=== PATIENT | female | born 1965 | race Caucasian/White ===

== ENCOUNTER 2016-12-13 06:14 | Emergency (ER) | payer OTHER ==
--- NOTE | 2016-12-13 09:01 | ED CLINICAL REPORT ---
Clinical Report - Physicians/Mid Levels [facility] [address] [place] [address] 12/13/2016 6:17 Patient: GRETCHEN DUNAWAY Time Seen: 621. Arrived- By private vehicle. Historian- patient. HISTORY OF PRESENT ILLNESS Is still present. Chief Complaint: HEADACHE. This started today. It was abrupt in onset and has been constant but is not gone now. It is described as similar to previous headaches. Located in the right hemicranial region. No neck pain. Not located in the facial region. At its maximum, severity described as moderate. When seen in the E.D., severity described as moderate. Modifying factors: worsened by bright light and noise; (relieved by medications). The patient has had photophobia and nausea. No preceding symptoms, blurred vision or vomiting. The patient has had recent travel- ([place]). Similar symptoms previously: Many times. Recent medical care: Not recently seen/assessed. REVIEW OF SYSTEMS No fever or skin rash. All systems otherwise negative, except as recorded above. PAST HISTORY See nurses notes. Allergies: Imitrex. Penicillins. Percocet. Reglan. SOCIAL HISTORY Never smoker. Occasional alcohol use. No drug use. No recent travel. Is an out of state resident. ADDITIONAL NOTES The nursing notes have been reviewed. PHYSICAL EXAM Vital Signs: 12/13/2016 06:20 BP: 130/89. HR: 86. RR: 18. O2 saturation: 100%. Temp: 97.7 F. Pain level now: 10/10. Blood pressure normal. Oxygen saturation normal. Appearance: Alert. No acute distress. Eyes: Pupils equal, round and reactive to light. Eyes normal inspection. No conjunctival findings. (no papilledema. Normal appearing retinal vasculature. Pupils are equally round and reactive to light. Extraocular movements are intact Without pain). ENT: Ears normal. Nose normal. Pharynx normal. Neck: Normal inspection. Neck supple. CVS: Normal heart rate and rhythm. Heart sounds normal. Pulses normal. Respiratory: No respiratory distress. Breath sounds normal. No rales, wheezes or rhonchi. Abdomen: Soft and nontender. No organomegaly. Back: Normal inspection. Skin: Skin warm and dry. Normal skin color. No rash. Normal skin turgor. Extremities: Extremities exhibit normal ROM. No lower extremity edema. Neuro: Oriented X 3. Alert. Mood/affect normal. Speech normal. Cranial nerves normal (as tested). No cerebellar findings. No motor deficit. No sensory deficit. (ormal gait). PROGRESS AND PROCEDURES Course of Care: Patient is a pleasant 51 yo female presenting for evaluation of headache. Patient as been evaluated for SAH, increased ICP, meningitis, and space occupying lesion. Patients exam and history are not consistent with these entities. Patient is agreeable to treatment for headache. Medications have been ordered after reviewing allergies and intolerances. Patient will be reevaluated after the medications have been given. Patient was reevaluated and found to be significantly improved. Patient reports being able to return home and follow up with doctor. Repeat examination continues to be benign. I discussed with the patient workup, diagnosis, home care, follow-up, and return precautions. All questions have been answered. The patient expressed understanding of these instructions and was agreeable to them. Do not feel patient needs to be admitted to the hospital or require further ED workup/evaluation. CLINICAL IMPRESSION 12/13/2016 08:23 BP: 122/76. HR: 77. RR: 18. O2 saturation: 100%. Pain level now: 2/10. Acute headache (right sided). Blood pressure normal. Oxygen saturation normal. INSTRUCTIONS Warnings: GENERAL WARNINGS: Return or contact your physician immediately if your condition worsens or changes unexpectedly, if not improving as expected, or if other problems arise. SPECIFICALLY, return if you develop fever, vomiting, numbness, weakness, difficulty thinking, visual disturbances, fainting or extreme fatigue. Follow-up: Return to the emergency department as needed. Follow up with your doctor in three days. Reason for referral: recheck today's concerns. Summary of care provided to patient via paper. Screening today revealed the patient's blood pressure to be in the normal range. The patient should follow up with a primary care provider for blood pressure management. Understanding of the discharge instructions verbalized by patient. (Electronically signed by Damian Head Dr. 12/18/2016 3:36)
--- NOTE | 2016-12-13 09:01 | ED ORDER SUMMARY ---
..... Patient: GRETCHEN DUNAWAY OrderSheet [facility] VisitID: [id number] [place] [address] 51y, F Registration Date/Time: 12/13/2016 ORDER SHEET Weight: 66.6 kg (stated) Allergies: Penicillins, Percocet, Imitrex, Reglan GENERAL ORDERS: MEDICATION ORDERS: Phenergan IV 25 mg (HIGH ALERT MEDICATION, NOW) (06:34 12/13/2016 J Carlos Wills) (6:54 DDaviannie R.N.) IV FLUIDS: IV NS : initial bolus 1000 mL (1000 mL/hr), then none - for X1 (NOW) (06:34 12/13/2016 J Carlos Wills) (6:54 DDavis R.N.) Benadryl IV 25 mg (NOW) (06:35 12/13/2016 J Carlos Wills) (6:57 TBowen R.N.) Decadron IV 10 mg (NOW) (06:37 12/13/2016 J Carlos Wills) (6:59 TBowen R.N.) Toradol IV 30 mg (NOW) (06:37 12/13/2016 J Carlos Wills) (6:59 TBowen R.N.) Dilaudid IV 1 mg (HIGH ALERT MEDICATION, NOW) (07:33 12/13/2016 J Carlos Wills) (7:46 Landon R.N.) ORDER SHEET NOTES: [Electronically signed by Rosey Aguero R.N. (09:12 12/13/2016)] [Electronically signed by Damian Head Dr. (03:36 12/18/2016)] [Electronically locked/signed by Rosey Aguero R.N. (09:12 12/13/2016)]
--- NOTE | 2016-12-13 09:01 | ED ORDER SUMMARY ---
..... Patient: GRETCHEN DUNAWAY OrderSheet [facility] VisitID: [id number] [place] [address] 51y, F Registration Date/Time: 12/13/2016 ORDER SHEET Weight: 66.6 kg (stated) Allergies: Penicillins, Percocet, Imitrex, Reglan GENERAL ORDERS: MEDICATION ORDERS: Phenergan IV 25 mg (HIGH ALERT MEDICATION, NOW) (06:34 12/13/2016 J Carlos Wills) (6:54 DDaviannie R.N.) IV FLUIDS: IV NS : initial bolus 1000 mL (1000 mL/hr), then none - for X1 (NOW) (06:34 12/13/2016 J Carlos Wills) (6:54 DDavis R.N.) Benadryl IV 25 mg (NOW) (06:35 12/13/2016 J Carlos Wills) (6:57 TBowen R.N.) Decadron IV 10 mg (NOW) (06:37 12/13/2016 J Carlos Wills) (6:59 TBowen R.N.) Toradol IV 30 mg (NOW) (06:37 12/13/2016 J Carlos Wills) (6:59 TBowen R.N.) Dilaudid IV 1 mg (HIGH ALERT MEDICATION, NOW) (07:33 12/13/2016 J Carlos Wills) (7:46 Landon R.N.) ORDER SHEET NOTES: [Electronically signed by Rosey Aguero R.N. (09:12 12/13/2016)] [Electronically signed by Damian Head Dr. (03:36 12/18/2016)] [Electronically locked/signed by Rosey Aguero R.N. (09:12 12/13/2016)]
--- NOTE | 2016-12-13 09:01 | ED NURSING NOTES ---
Clinical Report - Nurses [facility] [address] [place] [address] 12/13/2016 6:17 [id number] Triage time 06:Dec 13 2016. Acuity: LEVEL 4. Chief Complaint: MIGRAINE HEADACHE. 06:20 12/13/16. SEPSIS SCREEN: Sepsis Screen. Negative (no infection suspected/documented). GAETANO COMA SCORE: Gaetano Coma Scale: 15- eyes open spontaneously (4); best verbal response- oriented x 4 (5); best motor response- obeys commands (6). --06:24 Neela Rhodes R.N. 06:20 12/13/16. BP: 130/89. HR: 86. RR: 18. O2 saturation: 100%. Temp: 97.7 F. Pain level now: 06/17. --06:24 Neela Rhodes R.N. Weight: 66.6 kg stated. Height/Length: 67 inches Per Patient. BMI: 23. --06:20 Neela Rhodes R.N. Medication/allergy information source: the patient. --06:24 Neela Rhodes R.N. Allergies Penicillins. --06:20 Neela Rhodes R.N. Percocet. --06:20 Neela Rhodes R.N. Imitrex. --06:20 Neela Rhodes R.N. Reglan. --06:20 Neela Rhodes R.N. History Arrived by private vehicle. Historian: patient. Accompanied by family. This started 2 days ago. ( Migraine since Friday. States phenergan, benadryl toradol helps and that is what she had in ER Wed night (in [place]) . States this is a little worse headache than normal). She has had nausea. No vomiting. SOCIAL HX: Never smoker. Occasional alcohol use. No drug use. Recent travel. No known contact with a sick individual. ABUSE ASSESSMENT: No report of abuse. SELF HARM ASSESSMENT: A self harm assessment was performed. The patient answered "no" to the question "Have you recently felt down, depressed, or hopeless?", "Have you noticed less interest or pleasure in doing things?", "Do you have thoughts of harming or killing yourself?", "Are you here because you tried to hurt yourself?", "Have you ever tried to hurt yourself before today?", "Have you recently had thoughts about harming or killing others?" and "Do you have any dangerous items in your possession?". --06:24 Neela Rhodes R.N. PROBLEMS: Migraine Headache. --06:21 Neela Rhodes R.N. ADDITIONAL SURGERIES: Cholecystectomy. Knee Surgery. --06:21 Neela Rhodes R.N. Interventions ID band on patient. --06:24 Neela Rhodes R.N. PHYSICAL ASSESSMENT 06:25 12/13/16. Ambulatory to room. GENERAL / NEURO / PSYCH: Alert. Oriented X 4. Speech within normal limits. HEENT: No facial asymmetry noted. Pupils equal, round and reactive to light. RESPIRATORY: Respirations not labored. Breath sounds within normal limits. CVS: Capillary refill less than 2 seconds. GI / : Abdomen soft. SKIN: Skin is warm and dry. --07:03 Neela Rhodes R.N. NURSING PROGRESS NOTES 06:25 12/13/16. The initial plan of care for this patient includes an assessment with efforts to address the presence of pain; impairment of the neurological system. This plan of care was discussed with the patient. Reassurance given. Patient identifiers checked. Side rails up x 1. Bed placed in lowest position. Brakes of bed on. Patient ready for evaluation. --07:04 Neela Rhodes R.N. 06:47 12/13/2016 Benadryl (DiphenhydrAMINE HCl) IVP 25 mg given over 2 minute(s) via site #1. Allergies verified, confirmed 5 rights and sedative warning given to the patient. IV patency established. IV site checked: no pain, redness, or swelling. IV flushed thoroughly pre- and post-medication administration. IVP given by RN. --06:57 Ja Moore 06:48 12/13/2016 Started 10 mg of Decadron IVPB; at 10 mL/hr over 2 minute(s) via site #1 via dial-a-flow. Allergies verified and confirmed 5 rights. IV patency established. IV site checked: no pain, redness, or swelling. IV flushed thoroughly pre- and post-medication administration. --06:59 Ja Moore 06:49 12/13/2016 Toradol IVP 30 mg given over 2 minute(s) via site #1. Allergies verified and confirmed 5 rights. IV patency established. IV site checked: no pain, redness, or swelling. IV flushed thoroughly pre- and post-medication administration. IVP given by RN. --06:59 Ja Moore 06:53 12/13/2016 Site #1 started via IV in the left antecubital space with an 20g angiocath, with aseptic technique and good blood return. Blood drawn: rainbow set. Labeled in the presence of the patient and sent to the lab. Saline lock flushed with saline (Started by VLADIMIR POWELL). --06:53 Saleem Lugo R.N. 06:53 12/13/2016 Started bag #1 1000 mL IV Fluids IV NS (Saline); at 1000 mL/hr over 1 hour(s) via site #1. Allergies verified and confirmed 5 rights. IV patency established. IV site checked: no pain, redness, or swelling. IV flushed thoroughly pre- and post-medication administration. Completed per protocol. --06:54 Saleem Lugo R.N. 06:53 12/13/2016 Started 25 mg of PHENERGAN (Promethazine HCl) IVPB in bag #1 50 mL; at 200 mL/hr over 15 minute(s) via site #1; Allergies verified and confirmed 5 rights. IV patency established. IV site checked: no pain, redness, or swelling. IV flushed thoroughly pre- and post-medication administration. Completed per protocol. --06:54 Saleem Lugo R.N. ( 0658 - Patient's program director air talent called out for a nurse, stating there was a problem with the IV. I entered room and discovered the patient's IV was infiltrated. Left AC area swollen and painful. IV fluids and IV discontinued, Dr. Damian Glynn present with patient in room and aware. I informed the patient's primary ER nurse Neela Leivn RN. I applied a warm towel compress to the affected area over left AC.). --07:07 Saleem Lugo R.N. 06:58 12/13/2016 Site #1 removed. Manual pressure and bandage applied (IV infiltrated). --07:08 Saleem Lugo R.N. Care transferred and report received (Catherine GILBERT). --07:09 Rosey Aguero R.N. 07:30 12/13/2016 Site #2 started via IV in the right antecubital space with an 20g angiocath, with aseptic technique and good blood return; one attempt. Blood drawn: rainbow set. Labeled in the presence of the patient and sent to the lab. Saline lock flushed with 10 mL saline. --07:45 Abran Cuenca R.N. 07:31 12/13/2016 Dilaudid (HYDROmorphone HCl PF) IVP 1 mg given over 2 minute(s) via site #2. Allergies verified, confirmed 5 rights and sedative warning given. IV patency established. IV site checked: no pain, redness, or swelling. IV flushed thoroughly pre- and post-medication administration. IVP given by RN (IV site # 1 D/C'd). --07:46 Abran Cuenca R.N. 07:37 12/13/2016 PHENERGAN IVPB Discontinued: bag #1 infused. Total amount infused: 50 mL. IV patency established. IV site checked: no pain, redness, or swelling. IV flushed thoroughly. --07:47 Abran Cuenca R.N. 08:24 12/13/2016 IV Fluids IV NS Discontinued: bag #1 completed. Total amount infused: 1000 mL. IV patency established. IV site checked: no pain, redness, or swelling. IV flushed thoroughly. --08:24 Rosey Aguero R.N. 08:24 12/13/2016 Dilaudid IVP Response: no adverse reaction pain is improving. Symptoms have improved the patient feels better. --08:24 Rosey Aguero R.N. 08:23 12/13/16. BP: 122/76 (regular adult cuff) taken on the left arm, while sitting. HR: 77. RR: 18. O2 saturation: 100% on room air. Pain level now: 10/18. --08:24 Rosey Aguero R.N. 07:30 12/13/16. BP: 131/86. HR: 80. RR: 16. O2 saturation: 97% on room air. Temp: 98.8 F (oral). Pain level now: 02/15. Additional comments: LANE pain. --08:50 Abran Cuenca R.N. 08:46 12/13/2016 Toradol IVP Response: no adverse reaction pain is gone now. Symptoms have improved the patient feels better. --09:11 Rosey Aguero R.N. DISPOSITION / DISCHARGE Departure time: 09:Dec 13 2016. Condition at departure: improved. No learning barriers present. Discharge instructions provided and reviewed with the patient. Treatments reviewed (LANE). Patient verbalized understanding. Written instructions provided in Icelandic. The patient was discharged by the physician. She was discharged home and accompanied by parent. She left the Emergency Department ambulatory and via private vehicle. Parent driving. ( Patient has no further questions). --09:09 Rosey Aguero R.N. 09:04 12/13/16. BP: 120/78 (regular adult cuff) taken on the left arm, while sitting. HR: 73. RR: 16. O2 saturation: 100% on room air. Temp: 98.8 F (oral). Pain level now: 010. --09:09 Rosey Aguero R.N. Locked/Released at 12/13/2016 9:12 by Rosey Aguero R.N.
--- NOTE | 2016-12-18 03:36 | ED MAR SUMMARY ---
..... Medication Administration Record [facility] [address] [address] Patient: GRETCHEN DUNAWAY Visit ID: [id number] 51y, F Weight: 66.6 kg Height/Length: 67 in BMI: 23 ALLERGIES: Reglan, Imitrex, Percocet, Penicillins Given 06:47 12/13/2016 Ja Moore Medication Administered: BENADRYL [IVP] (DIPHENHYDRAMINE HCL), Dose: 25 mg IVP over 2 minute(s), Site: #1. Medication Ordered: Benadryl IV 25 mg (NOW). Start 06:48 12/13/2016 Ja Moore Medication Administered: DECADRON [IVPB], Dose: 10 mg IVPB over 2 minute(s), Rate: 10 mL/hr, Site: #1. Medication Ordered: Decadron IV 10 mg (NOW). Given 06:49 12/13/2016 Ja Moore Medication Administered: TORADOL [IVP], Dose: 30 mg IVP over 2 minute(s), Site: #1. Medication Ordered: Toradol IV 30 mg (NOW). Start 06:53 12/13/2016 Saleem Lugo R.N., Stop 08:24 12/13/2016 Rosey Aguero R.N. Medication Administered: IV NS (SALINE), Dose: IV Fluids over 1 hour(s), Rate: 1000 mL/hr, Dispensed: 1000 mL bag, Site: #1 left AC. Medication Ordered: IV NS : initial bolus 1000 mL (1000 mL/hr), then none - for X1 (NOW). Start 06:53 12/13/2016 Saleem Lugo R.N., Stop 07:37 12/13/2016 Abran Cuenca R.N. Medication Administered: PHENERGAN [IVPB] (PROMETHAZINE HCL), Dose: 25 mg IVPB over 15 minute(s), Rate: 200 mL/hr, Dispensed: 50 mL bag, Site: #1 left AC. Medication Ordered: Phenergan IV 25 mg (HIGH ALERT MEDICATION, NOW). Given 07:31 12/13/2016 Abran Cuenca R.N. Medication Administered: DILAUDID [IVP] (HYDROMORPHONE HCL PF), Dose: 1 mg IVP over 2 minute(s), Site: #2 right AC. Medication Ordered: Dilaudid IV 1 mg (HIGH ALERT MEDICATION, NOW).
--- NOTE | 2016-12-18 03:36 | ED MAR SUMMARY ---
..... Medication Administration Record [facility] [address] [place] [address] Patient: GRETCHEN DUNAWAY Visit ID: [id number] 51y, F Weight: 66.6 kg Height/Length: 67 in BMI: 23 ALLERGIES: Reglan, Imitrex, Percocet, Penicillins Given 06:47 12/13/2016 Ja Moore Medication Administered: BENADRYL [IVP] (DIPHENHYDRAMINE HCL), Dose: 25 mg IVP over 2 minute(s), Site: #1. Medication Ordered: Benadryl IV 25 mg (NOW). Start 06:48 12/13/2016 Ja Moore Medication Administered: DECADRON [IVPB], Dose: 10 mg IVPB over 2 minute(s), Rate: 10 mL/hr, Site: #1. Medication Ordered: Decadron IV 10 mg (NOW). Given 06:49 12/13/2016 Ja Moore Medication Administered: TORADOL [IVP], Dose: 30 mg IVP over 2 minute(s), Site: #1. Medication Ordered: Toradol IV 30 mg (NOW). Start 06:53 12/13/2016 Saleem Lugo R.N., Stop 08:24 12/13/2016 Rosey Aguero R.N. Medication Administered: IV NS (SALINE), Dose: IV Fluids over 1 hour(s), Rate: 1000 mL/hr, Dispensed: 1000 mL bag, Site: #1 left AC. Medication Ordered: IV NS : initial bolus 1000 mL (1000 mL/hr), then none - for X1 (NOW). Start 06:53 12/13/2016 Saleem Lugo R.N., Stop 07:37 12/13/2016 Abran Cuenca R.N. Medication Administered: PHENERGAN [IVPB] (PROMETHAZINE HCL), Dose: 25 mg IVPB over 15 minute(s), Rate: 200 mL/hr, Dispensed: 50 mL bag, Site: #1 left AC. Medication Ordered: Phenergan IV 25 mg (HIGH ALERT MEDICATION, NOW). Given 07:31 12/13/2016 Abran Cuenca R.N. Medication Administered: DILAUDID [IVP] (HYDROMORPHONE HCL PF), Dose: 1 mg IVP over 2 minute(s), Site: #2 right AC. Medication Ordered: Dilaudid IV 1 mg (HIGH ALERT MEDICATION, NOW).
--- NOTE | 2016-12-18 03:36 | ED MED RECONCILIATION SUMMARY ---
Patient: GRETCHEN DUNAWAY Medication Reconciliation Report [facility] VisitID: [id number] [address] [place] [address] 51y, F Registration Date/Time: 12/13/2016 Weight: 66.6 kg Height/Length: 67 in. BMI: 23.0 ALLERGIES: Imitrex, Penicillins, Percocet, Reglan The patient's Home Medications are listed below: Not obtained. The source(s) of the original Home Medication information: patient The following Medications were given to the patient in the Emergency Department: IV NS IV Fluids bolus 0, then 1000 mL/hr, administered: 12/13/2016 6:53:00 AM PHENERGAN [IVPB] IVPB bolus 0, then 25 mg 200 mL/hr, administered: 12/13/2016 6:53:00 AM Benadryl [IVP] IVP 25 mg, administered: 12/13/2016 6:47:00 AM Decadron [IVPB] IVPB bolus 0, then 10 mg 10 mL/hr, administered: 12/13/2016 6:48:00 AM Toradol [IVP] IVP 30 mg, administered: 12/13/2016 6:49:00 AM Dilaudid [IVP] IVP 1 mg, administered: 12/13/2016 7:31:00 AM The following Medications were prescribed to the patient: None.
--- NOTE | 2016-12-18 03:36 | ED DISCHARGE INSTRUCTIONS ---
Patient: GRETCHEN DUNAWAY General Instructions [facility] VisitID: [id number] [place] [address] 51y, F Registration Date/Time: 12/13/2016 12/13/2016 08:23 BP: 122/76. HR: 77. RR: 18. O2 saturation: 100%. Pain level now: 10/18. Acute headache (right sided). Blood pressure normal. Oxygen saturation normal. INSTRUCTIONS Warnings: GENERAL WARNINGS: Return or contact your physician immediately if your condition worsens or changes unexpectedly, if not improving as expected, or if other problems arise. SPECIFICALLY, return if you develop fever, vomiting, numbness, weakness, difficulty thinking, visual disturbances, fainting or extreme fatigue. Follow-up: Return to the emergency department as needed. Follow up with your doctor in three days. Reason for referral: recheck today's concerns. Summary of care provided to patient via paper. Screening today revealed the patient's blood pressure to be in the normal range. The patient should follow up with a primary care provider for blood pressure management. Understanding of the discharge instructions verbalized by patient. ADDITIONAL INFORMATION Headache [Unspecified] The cause of your headache today is not clear, but it does not appear to be the sign of any serious illness. Under stress, some people tense the muscles of their shoulder, neck and scalp without knowing it. If this condition lasts long enough, a TENSION HEADACHE can occur. A MIGRAINE HEADACHE is caused by changes in blood flow to the brain. A migraine attack may be triggered by emotional stress, hormone changes during the menstrual cycle, oral contraceptives, alcohol use, certain foods containing tyramine, eye strain, weather changes, missing meals, lack of sleep or oversleeping. Other causes of headache include a viral illness with high fever, head injury with concussion, sinus, ear or throat infection, dental pain and TMJ (jaw joint) pain. More serious but less common causes of headache include stroke, brain hemorrhage, brain tumor, meningitis and encephalitis. Home Care: If you were given pain medicine for this headache, do not drive yourself home. Arrange for a ride, instead. When you get home, try to sleep. You should feel much better when you wake up. Apply heat to the back of your neck to relieve neck muscle spasm. Migraine headaches may respond best to an ice pack on the forehead or at the base of the skull. If you are having nausea or vomiting, follow a light diet until your headache is relieved. If you have a migraine type headache, use sunglasses when in the daylight or around bright indoor lighting until symptoms improve. Bright glaring light can worsen this kind of headache. Follow Up with your doctor if the headache is not better within the next 24 hours. If you have frequent headaches you should discuss a treatment plan with your primary care doctor. By being aware of the earliest signs of headache, and starting treatment right away, you may be able to stop the pain yourself. Get Prompt Medical Attention if any of the following occur: Worsening of your head pain or no improvement within 24 hours Repeated vomiting (unable to keep liquids down) Fever of 100.4F (38C) or higher, or as directed by your healthcare provider Stiff neck Extreme drowsiness, confusion or fainting Dizziness, vertigo (dizziness with spinning sensation) Weakness of an arm or leg or one side of the face Difficulty with speech or vision You have been given the following additional information: Headache, Unspecified (Electronically signed by Damian Head Dr. 12/18/2016 3:36)
--- NOTE | 2016-12-18 03:36 | ED MED RECONCILIATION SUMMARY ---
Patient: GRETCHEN DUNAWAY Medication Reconciliation Report [facility] VisitID: [id number] [address] [place] [address] 51y, F Registration Date/Time: 12/13/2016 Weight: 66.6 kg Height/Length: 67 in. BMI: 23.0 ALLERGIES: Imitrex, Penicillins, Percocet, Reglan The patient's Home Medications are listed below: Not obtained. The source(s) of the original Home Medication information: patient The following Medications were given to the patient in the Emergency Department: IV NS IV Fluids bolus 0, then 1000 mL/hr, administered: 12/13/2016 6:53:00 AM PHENERGAN [IVPB] IVPB bolus 0, then 25 mg 200 mL/hr, administered: 12/13/2016 6:53:00 AM Benadryl [IVP] IVP 25 mg, administered: 12/13/2016 6:47:00 AM Decadron [IVPB] IVPB bolus 0, then 10 mg 10 mL/hr, administered: 12/13/2016 6:48:00 AM Toradol [IVP] IVP 30 mg, administered: 12/13/2016 6:49:00 AM Dilaudid [IVP] IVP 1 mg, administered: 12/13/2016 7:31:00 AM The following Medications were prescribed to the patient: None.
== END 2016-12-13 09:09 | disposition home or self-care (01) ==
LOC: ED SRH 06:14
DX: R51 Headache (principal); Z88.0 Allergy status to penicillin; Z88.5 Allergy status to narcotic agent; Z88.6 Allergy status to analgesic agent; Z88.8 Allergy status to other drugs, medicaments and biological substances